=== PATIENT | female | born 1985 | race African-American/Black ===

== ENCOUNTER 2018-05-19 17:22 | Emergency (ER) | payer SELFPAY ==
[~2018-05-19] VITALS: Ht 165.1 cm; Wt 54.4 kg
[2018-05-19 18:10] VITALS: BP 128/79
--- NOTE | 2018-05-19 18:17 | PHYS DOC ---
Adult General Chief Complaint Chief Complaint: LOWER BACK PAIN OR INJURY HPI HPI Patient is a 33 year old -[place] female who presents to the emergency room with complaints of right low back pain for the last 3 days. She denies any saddle anesthesia, numbness, tingling, or loss of bowel or bladder control. She states the pain is worse with movement. Her last menstrual period was about a month ago. She denies any radiation of her back pain into her buttock or her leg. Currently she rates the pain as 8 out of 10 on the pain scale. She denies any medical or surgical history, drug allergies, or current medications. States that she took a hydrocodone earlier today that did not help very much with her pain. She denies any dysuria Review of Systems Review of Systems Constitutional: Denies fever or chills [] Musculoskeletal: Denies weakness, injury, or joint pain; reports R lateral low back pain that increases with movement for the last 3 days. Denies saddle anesthesia or loss of bowel/bladder. : Denies any dysuria, frequency, or hematuria Integument: Denies rash or skin lesions [] Neurologic: Denies focal weakness or sensory changes [] Current Medications Current Medications Current Medications Medications (Trade) Dose Ordered Sig/Shay Start Time Stop Time Status Last Admin Dose Admin Ketorolac Tromethamine (Toradol 30mg Vial) 30 mg 1X ONCE 05/19/18 18:30 05/19/18 18:31 DC 05/19/18 18:42 30 MG Orphenadrine Citrate (Norflex) 60 mg 1X ONCE 05/19/18 18:30 05/19/18 18:31 DC 05/19/18 18:43 60 MG Allergies Allergies Allergies Coded Allergies Type Severity Reaction Last Updated Verified No Known Drug Allergies 05/19/18 No Physical Exam Physical Exam Constitutional: Well developed, well nourished, no acute distress, non-toxic appearance. [] HENT: Normocephalic, atraumatic, bilateral external ears normal, nose normal. [] Eyes: PERRLA, conjunctiva normal, no discharge. [] Skin: Warm, dry, no erythema, no rash. [] Back: R lateral lower back tenderness, no CVA tenderness. [] Extremities: No tenderness, no cyanosis, no clubbing, ROM intact, no edema. [] Neurologic: Alert and oriented X 3, normal motor function, normal sensory function, no focal deficits noted. [] Psychologic: Affect normal, judgement normal, mood normal. [] Current Patient Data Vital Signs Vital Signs Date Time Temp Pulse Resp B/P (MAP) Pulse Ox O2 Delivery O2 Flow Rate FiO2 05/19/18 18:10 98.1 69 16 128/79 (95) 100 Room Air 98.1 Lab Values Laboratory Tests Test 05/19/18 18:10 05/19/18 18:14 Urine Collection Type Void Urine Color Yellow Urine Clarity Clear Urine pH 6.5 Urine Specific Stamps >=1.030 Urine Protein Negative mg/dL (NEG-TRACE) Urine Glucose (UA) Negative mg/dL (NEG) Urine Ketones (Stick) Negative mg/dL (NEG) Urine Blood Negative (NEG) Urine Nitrite Negative (NEG) Urine Bilirubin Negative (NEG) Urine Urobilinogen Dipstick 1.0 mg/dL (0.2 mg/dL) Urine Leukocyte Esterase Trace (NEG) Urine RBC 0 /HPF (0-2) Urine WBC 1-4 /HPF (0-4) Urine Squamous Epithelial Cells Many /LPF Urine Bacteria Few /HPF (0-FEW) Urine Mucus Marked /LPF POC Urine HCG, Qualitative Hcg negative (Negative) EKG EKG [] Radiology/Procedures Radiology/Procedures [] Course & Med Decision Making Course & Med Decision Making Pertinent Labs and Imaging studies reviewed. (See chart for details) Patient is a 33-year-old female who presented to the emergency room with complaints of right low back pain for the last 3 days. Vital signs are stable. UA was negative for any acute findings. She was given 30 mg of IM Toradol, and 60 mg of IM Norflex relief of her pain. Patient ambulated with a steady gait, and verbalized a decrease in pain after injections. Patient verbalized an understanding of home care, medications, follow-up, and return to ED instructions and was in agreement with the plan of care. [] Dragon Disclaimer Dragon Disclaimer This electronic medical record was generated, in whole or in part, using a voice recognition dictation system. Departure Departure Impression: Primary Impression: Acute low back pain Disposition: HOME, SELF-CARE Condition: STABLE Referrals: ONUR MALLOY (PCP) Patient Instructions: Back Pain, Adult, [id number] Additional Instructions: Fill your prescriptions and use them as directed. Activity as tolerated. Recommend application of ice or heat for comfort. Follow-up with your primary care doctor in the next 1-2 days. Return to the emergency room if her symptoms worsen. Scripts Cyclobenzaprine Hcl (CYCLOBENZAPRINE HCL) 10 Mg Tablet 1 TAB PO QHS PRN for PAIN, #10 TAB Prov: ALEJANDRINA HIGGINS APRN 05/19/18 Naproxen (NAPROXEN) 500 Mg Tablet 1 TAB PO BID for 7 Days, #14 TAB 0 Refills Prov: ALEJANDRINA HIGGINS APRN 05/19/18 Problem Qualifiers Primary Impression: Acute low back pain Back pain laterality: right Sciatica presence: without sciatica Qualified Codes: M54.5 - Low back pain ALEJANDRINA HIGGINS APRN May 19, 2018 18:17
[2018-05-19 18:22] LABS: BILIRUBIN,URINE NEGATIVE (NEG); CLARITY,URINE CLEAR; COLOR,URINE YELLOW; NITRITE,URINE NEGATIVE (NEG); PH,URINE 6.5; PROTEIN,URINE NEGATIVE (NEG-TRACE)
[2018-05-19 18:28] LABS: BACTERIA,URINE FEW /HPF (0-FEW); RBC,URINE 0 /HPF (0-2); SQUAMOUS EPITHELIAL CELL,UR MANY /LPF
[2018-05-19] MEDS ORDERED: ORPHENADRINE CITRATE 60 MG/2 ML VIAL. IM ONE (18:30)
[2018-05-19] MEDS ORDERED: KETOROLAC 30 MG/ML VIAL. IM ONE (18:30)
[2018-05-19] MEDS ORDERED: NAPR-514 PO (19:16)
[2018-05-19] MEDS ORDERED: CYCL10TA2 PO (19:16)
== END 2018-05-19 19:20 | disposition home or self-care (01) ==
LOC: ER 17:22
DX: M54.5 Low back pain (principal)
CPT/HCPCS: 81001; 81025; 96372; 99284; J1885; J2360